=== PATIENT | male | born 1990 | race Caucasian/White ===

== ENCOUNTER 2019-01-20 13:06 | Day surgery (SDC) | payer OTHER ==
[~2019-01-20] VITALS: Ht 180.3 cm; Wt 83.0 kg
[~2019-01-20 13:06] MED LIST: OMEP20CA3 PO
[2019-01-20] MEDS ORDERED: LIDOCAINE 2% INJ 100 MG/5 ML SDV (FOR ANES.) As Ordered ONE ×2 (13:13→13:45)
[2019-01-20] MEDS ORDERED: NS 1,000 ML IV ONE (13:30)
[2019-01-20] MEDS ORDERED: PROPOFOL 200 MG/20 ML VIAL As Ordered ONE (13:45)
[2019-01-20] MEDS ORDERED: fentaNYL 100 MCG/2 ML INJECTION (J3010) As Ordered ONE (13:45)
--- NOTE | 2019-01-20 13:59 | ROOR ---
Patient Name: Chuck Diego Procedure Date: 01/20/2019 1:39 PM Date of : 1990 Age: 28 Room: [facility] Gender: Male Note Status: Finalized Procedure: Upper GI endoscopy Indications: Surveillance for malignancy due to personal history of Cotton's esophagus Providers: Chi BAZAN MD Referring MD: Mohan JUAREZ MD Requesting Provider: Medicines: Monitored Anesthesia Care Complications: No immediate complications. Procedure: Pre-Anesthesia Assessment: - The heart rate, respiratory rate, oxygen saturations, blood pressure, adequacy of pulmonary ventilation, and response to care were monitored throughout the procedure. The Endoscope was introduced through the mouth, and advanced to the second part of duodenum. The upper GI endoscopy was accomplished without difficulty. The patient tolerated the procedure well. Findings: The Z-line was irregular and was found 38 cm from the incisors. This was biopsied with a cold forceps for evaluation to rule out Cotton's Esophagus. One 3 mm polyp was found in the upper third of the esophagus. The polyp was removed with a jumbo cold forceps. Resection and retrieval were complete. The exam of the esophagus was otherwise normal. The entire examined stomach was normal. The examined duodenum was normal. Impression: - Z-line irregular, 38 cm from the incisors. Biopsied to follow up barretts esophagus. - A 3 mm proximal esophageal polyp/papilloma was found. Resected and retrieved. - The esophagus is otherwise normal. - Normal stomach. - Normal examined duodenum. Recommendation: - Continue present medications. - Telephone endoscopist for pathology results in 2 weeks. - Repeat upper endoscopy in 3 - 5 years for surveillance based on pathology results. Chi Bazan MD Chi BAZAN MD 01/20/2019 1:59:04 PM Electronically signed by Chi BAZAN MD Number of Addenda: 0 Note Initiated On: 01/20/2019 1:39 PM Estimated Blood Loss: Estimated blood loss: none.
[2019-01-20 14:26] VITALS: BP 128/75
== END 2019-01-20 14:26 | disposition home or self-care (01) ==
LOC: M OPP 13:06
PROVIDERS: ATTEND Internal Medicine Gastroenterology
DX: K22.70 Barrett's esophagus without dysplasia (principal); K22.8 Other specified diseases of esophagus; K31.7 Polyp of stomach and duodenum
CPT/HCPCS: 88305; J3010

== ENCOUNTER → 2022-05-04 | Outpatient (CLI) | payer BC, OTHER ==
[~2022-05-04] MED LIST changes: +OMEP1CAP73 PO; -OMEP20CA3 PO
== END ==
LOC: M LABSMTC 09:39
PROVIDERS: ATTEND Anesthesiology
DX: Z01.812 Encounter for preprocedural laboratory examination (principal); Z20.822 Contact with and (suspected) exposure to COVID-19

== ENCOUNTER 2022-05-07 10:45 | Day surgery (SDC) | payer BC, OTHER ==
[~2022-05-07] VITALS: Ht 180.3 cm; Wt 86.2 kg
[~2022-05-07 10:45] MED LIST changes: +NS 1,000 ML IV ONE
[2022-05-07] MEDS ORDERED: LIDOCAINE 2% 100MG/5ML SDV (FOR ANES.) As Ordered ONE (11:45)
[2022-05-07] MEDS ORDERED: propofoL 200 MG/20 ML VIAL As Ordered ONE ×2 (11:45→11:49)
[2022-05-07 12:20] VITALS: BP 136/69
== END 2022-05-07 12:31 | disposition home or self-care (01) ==
LOC: M OPP 10:45
PROVIDERS: ATTEND Internal Medicine Gastroenterology
DX: K22.89 Other specified disease of esophagus (principal); K22.70 Barrett's esophagus without dysplasia; Z79.899 Other long term (current) drug therapy